=== PATIENT | female | born 1965 | race Caucasian/White ===

== ENCOUNTER 2022-11-19 06:10 | Observation (INO) ==
[2022-11-15 11:24] LABS: Basophils # 0.1 10*3/uL (0.0-0.2); Basophils % 0.8 % (0.0-0.8); Eosinophils # 0.2 10*3/uL (0.0-0.87); Eosinophils % 1.9 % (0.00-10.9); Hemoglobin 13.8 GM/DL (12.0-16.0); Immature Granulocytes % 0.3 %; Immature Granulocytes Absolute 0.03 #; Lymphocytes # 3.6 10*3/uL (1.4-4.0); Lymphocytes % 38.9 % (21.3-54.2); Mean Corpuscular HGB Conc 32.9 GM/DL (32-36); Mean Corpuscular Volume 88.6 FL (87-102); Mean Platelet Volume 10.4 FL (9.6-12.0); Monocytes # 0.6 10*3/uL (0.11-0.8); Monocytes % 6.5 % (1.7-12.7); Neutrophils % 51.6 % (38.7-73.9); Platelet Count 321 T/CUMM (130-400); Red Blood Count 4.74 MC/CUMM (3.8-5.5); Red Cell Distribution Width 13.5 % (9.3-17.3); White Blood Count 9.2 T/CUMM (4-12)
[2022-11-15 11:35] LABS: Calcium 9.7 MG/DL (8.5-10.1); Osmolality,Calculated 282.3 MOS/KG (273-304); Potassium 4.4 MMOL/L (3.5-5.1)
[~2022-11-19 06:10] MED LIST: CLINDAMYCIN INJ 600 MG/50 ML PREMIX IV ONE; LIDOCAINE 2% 5 ML VIAL ONE; MIDAZOLAM 2 MG/2 ML VIAL ONE; ROCURONIUM 50 MG/5 ML VIAL IV ONE; SUCCINYLCHOLINE 200 MG/10 ML VIAL ONE; fentaNYL 100 MCG/2 ML VIAL ONE; propofoL 200 MG/20 ML VIAL IV ONE
[2022-11-19] MEDS ORDERED: buprenorphine HCL 0.3 MG/ML VIAL ONE (06:31)
[2022-11-19] MEDS ORDERED: GABAPENTIN 400 MG CAPSULE PO ONE (06:36)
[2022-11-19] MEDS ORDERED: FAMOTIDINE 20 MG TABLET PO ONE (06:36)
[2022-11-19] MEDS ORDERED: FAMOTIDINE 20 MG TABLET ONE (06:38)
[2022-11-19] MEDS ORDERED: GABAPENTIN 400 MG CAPSULE ONE (06:38)
[2022-11-19] MEDS ORDERED: LACTATED RINGERS 1,000 ML IV SCH (07:00)
[2022-11-19] MEDS ORDERED: ACETAMINOPHEN INJ 1,000 MG/100 ML VIAL IV ONE (07:51)
[2022-11-19] MEDS ORDERED: DEXAMETHASONE 4 MG/1 ML VIAL ONE (07:55)
[2022-11-19] MEDS ORDERED: SEVOFLURANE 1 UNIT/15 MINUTE INH ONE ×2 (07:55→08:36)
[2022-11-19] MEDS ORDERED: NEOSTIGMINE 10 MG/10 ML VIAL ONE (08:14)
[2022-11-19] MEDS ORDERED: PHENYLEPHRINE 1 MG/10 ML SYRINGE IV ONE (08:28)
[2022-11-19] MEDS ORDERED: ONDANSETRON 4 MG/2 ML VIAL ONE ×2 (08:28→09:00)
[2022-11-19] MEDS ORDERED: GLYCOPYRROLATE 0.4 MG/2 ML VIAL ONE (08:29)
[2022-11-19] MEDS ORDERED: LACTATED RINGERS 1,000 ML IV ONE (08:35)
[2022-11-19] MEDS ORDERED: HYDROmorphone 1 MG/1 ML SYRINGE ONE (09:00)
[2022-11-19] MEDS ORDERED: diphenhydrAMINE 50 MG/1 ML VIAL IV PRN (09:00)
[2022-11-19] MEDS ORDERED: ONDANSETRON 4 MG/2 ML VIAL IV PRN ×2 (09:00→09:02)
[2022-11-19] MEDS ORDERED: MEPERIDINE 25 MG/1 ML VIAL IV PRN (09:00)
[2022-11-19] MEDS ORDERED: PROMETHAZINE INJ 25 MG in SODIUM CHLORIDE 0.9% 50 ML IV PRN (09:00)
[2022-11-19] MEDS: HYDROmorphone 1 MG/1 ML SYRINGE IV PRN ×6 (09:00→22:38)
[2022-11-19] MEDS ORDERED: ALPRAZolam 0.5 MG TABLET PO PRN (09:02)
[2022-11-19] MEDS ORDERED: PROMETHAZINE 25 MG/1 ML VIAL IM PRN (09:02)
[2022-11-19] MEDS ORDERED: KETOROLAC 30 MG/1 ML VIAL ONE (09:17)
[2022-11-19] MEDS: KETOROLAC 15 MG/1 ML VIAL IV SCH ×3 (09:44→20:47)
[2022-11-19] MEDS: LETROZOLE 2.5 MG TABLET PO SCH (12:22)
[2022-11-19] MEDS: LACTATED RINGERS 1,000 ML IV SCH ×2 (12:23→22:48)
[2022-11-19] MEDS: IBUPROFEN 800 MG TABLET PO SCH ×3 (12:23→20:47)
[2022-11-19] MEDS ORDERED: INFLUENZA VIRUS VACCINE 0.5 ML SYRINGE IM ONE (14:44)
[2022-11-19] MEDS: GABAPENTIN 300 MG CAPSULE PO SCH ×2 (15:36→20:46)
[2022-11-20] MEDS: HYDROmorphone 1 MG/1 ML SYRINGE IV PRN ×2 (02:16→05:56)
[2022-11-20] MEDS: LACTATED RINGERS 1,000 ML IV SCH ×2 (02:22→10:58)
[2022-11-20] MEDS: KETOROLAC 15 MG/1 ML VIAL IV SCH ×2 (03:59→09:11)
[2022-11-20] MEDS ORDERED: ENOXAPARIN 40 MG/0.4 ML SYRINGE SUBCUT SCH (05:00)
[2022-11-20] MEDS ORDERED: LEVOTHYROXINE 75 MCG TABLET PO SCH (06:30)
[2022-11-20] MEDS: LETROZOLE 2.5 MG TABLET PO SCH (09:09)
[2022-11-20] MEDS: GABAPENTIN 300 MG CAPSULE PO SCH (09:09)
[2022-11-20] MEDS: IBUPROFEN 800 MG TABLET PO SCH (09:09)
[2022-11-20 11:39] VITALS: BP 120/57
== END 2022-11-20 14:06 | disposition home or self-care (01) ==
LOC: N.OR 06:10 → N.SDSINP 06:11 → N.3E 08:27 → INTOOBSV 08:27 → N.3E 12:01
PROVIDERS: ADMIT Surgery; ATTEND Surgery